=== PATIENT | female | born 1965 | race Caucasian/White ===

== ENCOUNTER 2019-06-05 15:10 | Emergency (ER) | payer SELFPAY ==
[~2019-06-05] VITALS: Ht 167.6 cm; Wt 71.7 kg
[2019-06-05 15:22] VITALS: BP 142/89
[2019-06-05 16:08] LABS: APPEARANCE,URINE CLEAR (CLEAR); BILIRUBIN,URINE NEGATIVE (NEGATIVE); BLOOD, URINE NEGATIVE (NEGATIVE); COLOR,URINE YELLOW (YELLOW); LEUKOCYTE ESTERASE ,URINE NEGATIVE (NEGATIVE); NITRITE, URINE NEGATIVE (NEGATIVE); PH,URINE 5.5 (5.0-9.0); UGLUCOSE NEGATIVE (NEGATIVE)
[2019-06-05 16:08] LABS: BASOPHILS % (AUTO) 0.4 % (0.0-2.0); EOSINOPHILS # (AUTO) 0.3 K/uL (0-0.4); EOSINOPHILS % (AUTO) 5.3 % (0.0-4.0); HEMATOCRIT 37.9 % (36-48); HEMOGLOBIN 12.5 g/dL (12.0-16.0); LYMPHOCYTES # (AUTO) 2.2 K/uL (2.5-16.5); LYMPHOCYTES % (AUTO) 32.9 % (20.5-51.1); MEAN CORPUSCULAR HEMOGLOBIN 29 pg (27-31); MEAN CORPUSCULAR HGB CONC 33 g/dL (33-37); MEAN CORPUSCULAR VOLUME 88.3 fL (80-94); MONOCYTES # (AUTO) 0.5 K/uL (0.8-1.0); MONOCYTES % (AUTO) 7.8 % (1.7-9.3); NEUTROPHILS # (AUTO) 3.5 K/uL (1.8-7.7); NEUTROPHILS % (AUTO) 53.6 % (42.2-75.2); PLATELET COUNT (AUTO) 316 K/uL (140-450); RED BLOOD CELL COUNT(AUTO) 4.29 MIL/uL (4.20-5.40); WHITE BLOOD COUNT (AUTO) 6.6 K/uL (4.8-10.8)
[2019-06-05 16:24] LABS: PROTHROMBIN TIME 8.8 secs (10.8-13.4)
[2019-06-05 16:28] LABS: ANION GAP 14.2 (8-16); CARBON DIOXIDE 28.7 mmol/L (21-32); CREATININE 0.7 mg/dL (0.6-1.3); POTASSIUM 3.9 mmol/L (3.5-5.1)
[2019-06-05 16:32] LABS: ALBUMIN 3.5 g/dL (3.4-5.0); TOTAL BILIRUBIN 0.1 mg/dL (0.0-1.0)
--- NOTE | 2019-06-05 16:34 | NUR ---
PT AMBULATED TO BED 05
--- NOTE | 2019-06-05 16:40 | NUR ---
53 Y/O F PRESENTS TO ER C/O RECTAL BLEEDING. PER PT SHE NOTICED BLOOD IN THE TOILET AFTER HER LAST 2 BOWEL MOVEMENTS. PT DENIES ANY PAIN UPON DEFECATION OR URINATION. PT LAST LMP X2 WEEKS AGO. PT DENIES HAVING HEMMOROIDS. PT FEELS BLOATED, BUT DENIES FEELING CONSTIPATED. LAST X2 BMS SOFT. HOB ELEVATED, BED IN LOWEST POSITION, BED RAIL UP X1. WAITING FOR ERMD TO EVALUATE PT. ALLERGIES: NKA MED HX: NONE
[2019-06-05 18:38] VITALS: BP 142/89
--- NOTE | 2019-06-05 18:39 | NUR ---
Patient discharged with v/s stable. Written and verbal after care instructions given and explained. Patient verbalized understanding. Ambulatory with steady gait. All questions addressed prior to discharge. Advised to follow up with PMD.
== END 2019-06-05 18:39 | disposition home or self-care (01) ==
LOC: MED 15:10
DX: K62.5 Hemorrhage of anus and rectum (principal); K64.9 Unspecified hemorrhoids
CPT/HCPCS: 36415; 80048; 80076; 81003; 82150; 83690; 85025; 85610; 99283